=== PATIENT | female | born 1930 | race Caucasian/White ===

== ENCOUNTER 2018-05-24 11:16 | Inpatient (IN) | payer MEDICARE, OTHER ==
[~2018-05-24] VITALS: Ht 157.5 cm; Wt 59.9 kg
[2018-05-24] VITALS (14 sets, daily range): BP systolic 70–147; BP diastolic 40–97
[2018-05-24] MEDS ORDERED: IV NORMAL SALINE 1000ML BAG 1,000 ML IV ONE ×7 (11:45→17:15)
[2018-05-24] MEDS ORDERED: ETOMIDATE 20 MG/10 ML VIAL. IV ONE (11:59)
[2018-05-24] MEDS ORDERED: PANTOPRAZOLE IV PUSH 40 MG VIAL. IVP ONE (12:00)
[2018-05-24] MEDS ORDERED: ROCURONIUM 50 MG/5 ML VIAL. ONE (12:00)
[2018-05-24 12:05] LABS: BASO # 0.1 x10^3/uL (0.0-0.2); BASO % 0 % (0-3); EOS # 0.3 x10^3/uL (0.0-0.7); EOS % 2 % (0-3); HEMATOCRIT 29.6 % (36.0-47.0); HEMOGLOBIN 10.1 g/dL (12.0-15.5); LYMPH # 0.7 x10^3/uL (1.0-4.8); LYMPH % 6 % (24-48); MEAN CORPUSCULAR HEMOGLOBIN 34 pg (25-35); MEAN CORPUSCULAR HGB CONC 34 g/dL (31-37); MEAN CORPUSCULAR VOLUME 101 fL (79-100); MONO # 0.6 x10^3/uL (0.0-1.1); MONO % 4 % (0-9); NEUT # 11.4 x10^3uL (1.8-7.7); NEUT % 87 % (31-73); PLATELET COUNT 114 x10^3/uL (140-400); RED BLOOD COUNT 2.93 x10^6/uL (3.50-5.40); RED CELL DISTRIBUTION WIDTH 24.3 % (11.5-14.5); WHITE BLOOD COUNT 13.1 x10^3/uL (4.0-11.0)
[2018-05-24 12:07] LABS: BILIRUBIN,URINE LARGE (NEG); CLARITY,URINE CLOUDY; NITRITE,URINE POSITIVE (NEG); PROTEIN,URINE NEGATIVE (NEG-TRACE)
[2018-05-24 12:14] LABS: COLOR,URINE AMBER
[2018-05-24] MEDS ORDERED: dilTIAZem IV PUSH 25 MG/5 ML VIAL IVP ONE (12:15)
[2018-05-24] MEDS ORDERED: NOREPINEPHRIN 8MG/250ML PREMIX 250 ML IV ONE (12:15)
[2018-05-24] MEDS ORDERED: dilTIAZem INJ 125 MG in IV DEXTROSE 5% 100ML 100 ML IV PRN (12:15)
[2018-05-24 12:18] LABS: PROTHROMBIN TIME PATIENT 28.3 SEC (11.7-14.0)
[2018-05-24 12:18] LABS: AMORPHOUS SEDIMENT,UR PRESENT /HPF
--- NOTE | 2018-05-24 12:20 | RAD ---
Single view of the chest. 05/24/2018 11:57 AM Indication: RESPIRATORY DISTRESS, S/P INTUBATION Comparison: None available Findings: There is an endotracheal tube in place with tip approximately 2.5 cm above the tio. An enteric tube extends into the expected position of stomach. No pneumothorax is seen. No significant pleural effusion is identified. Lung volumes are low. Heart size is normal. Patchy infiltrates present throughout the bilateral lungs suggestive of edema or atypical infectious process. No acute osseous changes are identified. Limited visualization of the upper abdomen demonstrates 2 stents in the right upper quadrant. This could represent biliary or portal venous stents. The former is more common. 1. Endotracheal tube 2.5 cm above the tio. Enteric tube extending in the stomach 2. Patchy bilateral pulmonary infiltrates are present edema or atypical infectious process Electronically signed by: Los Pedro MD (05/24/2018 12:16 PM) [id number]
[2018-05-24 12:22] LABS: BASE EXCESS COOX -13 mmol/L (-3-3); HCO3 COOX 15 mmol/L (21-28); METHEMOGLOBIN 0.7 % (0.0-1.9); OXYHEMOGLOBIN 95.9 %; PO2 COOX 133 mmHg (65-108); SAT O2 COOX 97 % (92-99)
[2018-05-24 12:23] LABS: BACTERIA,URINE MODERATE /HPF (0-FEW)
[2018-05-24 12:27] LABS: CALCIUM 7.6 mg/dL (8.5-10.1); CREATININE 3.6 mg/dL (0.6-1.0); GFR 11.9; POTASSIUM 4.3 mmol/L (3.5-5.1)
--- NOTE | 2018-05-24 12:32 | PHYS DOC ---
Past Medical History Past Medical History: Other Additional Past Medical Histor: Liver cancer Past Medical History Unable to obtain due to patient's condition Additional Past Surgical Histo: unknown Past Surgical History Unable to obtain due to patient's condition Social History Unable to obtain due to patient's condition Adult General Chief Complaint Chief Complaint: ALTERED MENTAL STATUS HPI HPI 87-year-old female presents via EMS for altered mental status with 2 day history of vomiting coffee-ground emesis. Per EMS patient also hypotensive down to 80s over 50s,. heart rate elevated and appears to be in atrial fibrillation with RVR versus if atrial flutter, and with O2 sat down to 54%. Patient apparently has a history of liver cancer for which she is currently receiving some form of chemotherapy at home. History of present illness limited given patient's altered mental status. Review of Systems Review of Systems Constitutional: Reports weakness and altered mental status Respiratory: Reports shortness of breath and hypoxia GI: Reports coffee ground emesis and bloody stools. Neurologic: Reports altered mental status ROS limited given patient's current condition. Current Medications Current Medications Current Medications Medications (Trade) Dose Ordered Sig/Elsie Start Time Stop Time Status Last Admin Dose Admin Diltiazem HCl (Cardizem) 10 mg 1X ONCE 05/24/18 12:15 05/24/18 12:16 DC 05/24/18 12:37 10 MG Diltiazem HCl 125 mg/Dextrose 125 ml @ 5 mls/hr CONT PRN 05/24/18 12:15 05/24/18 12:32 5 MLS/HR Etomidate (Amidate) 20 mg STK-MED ONCE 05/24/18 11:59 05/24/18 12:00 DC Norepinephrine Bitartrate 250 ml @ 0 mls/hr 1X ONCE 05/24/18 12:15 05/24/18 12:16 DC 05/24/18 12:58 1.8 MLS/HR Pantoprazole Sodium (PROTONIX VIAL for IV PUSH) 80 mg 1X ONCE 05/24/18 12:00 05/24/18 12:14 DC 05/24/18 12:31 80 MG Pantoprazole Sodium 80 mg/ Sodium Chloride 100 ml @ 10 mls/hr Q10H 05/24/18 12:00 05/24/18 12:54 10 MLS/HR Piperacillin Sod/ Tazobactam Sod (Zosyn Per Pharmacy) 1 each PRN DAILY PRN 05/24/18 13:45 Piperacillin Sod/ Tazobactam Sod 2.25 gm/Sodium Chloride 50 ml @ 100 mls/hr 1X ONCE 05/24/18 13:45 05/24/18 14:14 DC 05/24/18 14:22 100 MLS/HR Piperacillin Sod/ Tazobactam Sod 4.5 gm/Sodium Chloride 100 ml @ 200 mls/hr 1X ONCE 05/24/18 13:45 05/24/18 14:14 UNV Rocuronium [place] (Zemuron) 50 mg STK-MED ONCE 05/24/18 12:00 05/24/18 12:02 DC Sodium Bicarbonate (Sodium Bicarb Adult 8.4% Syr) 50 meq STK-MED ONCE 05/24/18 13:35 05/24/18 13:36 DC Sodium Chloride 1,000 ml @ 1,000 mls/hr 1X ONCE 05/24/18 13:30 05/24/18 14:29 DC 05/24/18 13:05 1,000 MLS/HR Vancomycin HCl (Vanco Per Pharmacy) 1 each PRN DAILY PRN 05/24/18 13:45 Allergies Allergies Allergies Coded Allergies Type Severity Reaction Last Updated Verified No Known Drug Allergies 05/24/18 No Physical Exam Physical Exam Constitutional: Pale, elderly female who appears jaundice HENT: Normocephalic, atraumatic , oropharynx moist, dark vomitus noted to bilateral nares and side of mouth Eyes: PERRL, scleral icterus noted Neck: supple, no stridor, JVD noted bilaterally Cardiovascular: Tachycardic heart rate and CR > 2 sec to periphery Lungs & Thorax: Coarse breath sounds noted, agonal respirations Abdomen: Soft, mild distention noted Skin: Cool, dry, mild jaundice [] Extremities: No tenderness, 3+ pitting edema. [] Neurologic: Alert and oriented x 0, altered, open eyes to verbal Psychologic: Unable to assess Current Patient Data Vital Signs Vital Signs Date Time Temp Pulse Resp B/P (MAP) Pulse Ox O2 Delivery O2 Flow Rate FiO2 05/24/18 13:50 152 20 99 05/24/18 13:28 93.0 93.0 05/24/18 12:37 97/55 05/24/18 11:35 Ventilator Lab Values Laboratory Tests Test 05/24/18 11:50 05/24/18 11:55 05/24/18 12:15 05/24/18 12:25 White Blood Count 13.1 x10^3/uL (4.0-11.0) H Red Blood Count 2.93 x10^6/uL (3.50-5.40) L Hemoglobin 10.1 g/dL (12.0-15.5) L Hematocrit 29.6 % (36.0-47.0) L Mean Corpuscular Volume 101 fL (79-100) H Mean Corpuscular Hemoglobin 34 pg (25-35) Mean Corpuscular Hemoglobin Concent 34 g/dL (31-37) Red Cell Distribution Width 24.3 % (11.5-14.5) H Platelet Count 114 x10^3/uL (140-400) L Neutrophils (%) (Auto) 87 % (31-73) H Lymphocytes (%) (Auto) 6 % (24-48) L Monocytes (%) (Auto) 4 % (0-9) Eosinophils (%) (Auto) 2 % (0-3) Basophils (%) (Auto) 0 % (0-3) Neutrophils # (Auto) 11.4 x10^3uL (1.8-7.7) H Lymphocytes # (Auto) 0.7 x10^3/uL (1.0-4.8) L Monocytes # (Auto) 0.6 x10^3/uL (0.0-1.1) Eosinophils # (Auto) 0.3 x10^3/uL (0.0-0.7) Basophils # (Auto) 0.1 x10^3/uL (0.0-0.2) Segmented Neutrophils % 68 % (35-66) H Band Neutrophils % 21 % (0-9) H Lymphocytes % 6 % (24-48) L Monocytes % 4 % (0-10) Metamyelocytes % 1 % (0-0) H Toxic Granulation Slight Toxic Vacuolation Slight Platelet Estimate Decreased (ADEQUATE) Large Platelets Few Polychromasia Present Anisocytosis Mod Macrocytosis Mod Target Cells Few [place] Cells Few Prothrombin Time 28.3 SEC (11.7-14.0) H Prothrombin Time INR 2.7 (0.8-1.1) H PTT 35 SEC (24-38) Sodium Level 137 mmol/L (136-145) Potassium Level 4.3 mmol/L (3.5-5.1) Chloride Level 97 mmol/L (98-107) L Carbon Dioxide Level 15 mmol/L (21-32) L Anion Gap 25 (6-14) H Blood Urea Nitrogen 73 mg/dL (7-20) H Creatinine 3.6 mg/dL (0.6-1.0) H Estimated GFR (Cockcroft-Gault) 11.9 BUN/Creatinine Ratio 20 (6-20) Glucose Level 52 mg/dL (70-99) L Lactic Acid Level 14.3 mmol/L (0.4-2.0) *H Calcium Level 7.6 mg/dL (8.5-10.1) L Total Bilirubin 5.3 mg/dL (0.2-1.0) H Aspartate Amino Transferase (AST) 2387 U/L (15-37) H Alanine Aminotransferase (ALT) 456 U/L (14-59) H Alkaline Phosphatase 309 U/L (46-116) H Ammonia 27 mcmol/L (11-34) Total Protein 4.5 g/dL (6.4-8.2) L Albumin 1.1 g/dL (3.4-5.0) L Albumin/Globulin Ratio 0.3 (1.0-1.7) L Urine Collection Type Unknown Urine Color Ingris Urine Clarity Cloudy Urine pH 5.0 Urine Specific [place] 1.020 Urine Protein Negative mg/dL (NEG-TRACE) Urine Glucose (UA) Negative mg/dL (NEG) Urine Ketones (Stick) Trace mg/dL (NEG) Urine Blood Negative (NEG) Urine Nitrite Positive (NEG) Urine Bilirubin Large (NEG) Urine Urobilinogen Dipstick 1.0 mg/dL (0.2 mg/dL) Urine Leukocyte Esterase Small (NEG) Urine RBC 1-2 /HPF (0-2) Urine WBC 1-4 /HPF (0-4) Urine Amorphous Sediment Present /HPF Urine Bacteria Moderate /HPF (0-FEW) Urine Mucus Slight /LPF O2 Saturation 97 % (92-99) Arterial Blood pH 7.17 (7.35-7.45) *L Arterial Blood pCO2 at Patient Temp 41 mmHg (35-46) Arterial Blood pO2 at Patient Temp 133 mmHg (65-108) H Arterial Blood HCO3 15 mmol/L (21-28) L Arterial Blood Base Excess -13 mmol/L (-3-3) L Oxyhemoglobin 95.9 % Methemoglobin 0.7 % (0.0-1.9) Carbon Monoxide, Quantitative 0.3 % (0.0-1.9) FiO2 100.0 Fibrinogen 290 mg/dL (200-440) D-Dimer ([place]) 8.81 ug/mlFEU (0.00-0.50) H Test 05/24/18 13:00 Gastric Fluid Occult Blood Positive (NEG) Laboratory Tests 05/24/18 11:50 Laboratory Tests 05/24/18 11:50 EKG EKG @1200: Atrial fibrillation with RVR at 169bpm, low voltage QRS, NO ST elevation Radiology/Procedures Radiology/Procedures PROCEDURE: PORTABLE CHEST 1V Single view of the chest. 05/24/2018 11:57 AM Indication: RESPIRATORY DISTRESS, S/P INTUBATION Comparison: None available Findings: There is an endotracheal tube in place with tip approximately 2.5 cm above the tio. An enteric tube extends into the expected position of stomach. No pneumothorax is seen. No significant pleural effusion is identified. Lung volumes are low. Heart size is normal. Patchy infiltrates present throughout the bilateral lungs suggestive of edema or atypical infectious process. No acute osseous changes are identified. Limited visualization of the upper abdomen demonstrates 2 stents in the right upper quadrant. This could represent biliary or portal venous stents. The former is more common. 1. Endotracheal tube 2.5 cm above the tio. Enteric tube extending in the stomach 2. Patchy bilateral pulmonary infiltrates are present edema or atypical infectious process Electronically signed by: Los Pedro MD (05/24/2018 12:16 PM) [id number] PROCEDURE: CHEST AP ONLY EXAM: Chest, single view. HISTORY: Right internal jugular catheter placement. COMPARISON: 05/24/2018 FINDINGS: A frontal view of the chest is obtained. There is a right internal jugular catheter with the tip in the superior cavoatrial junction. There is an endotracheal tube within the distal trachea with the tip 1.7 cm proximal to the tio. There is a nasogastric tube looped within the stomach. There is stable to slight increased diffuse mixed interstitial and alveolar infiltrate. There is a suspected small pleural effusions. There is no pneumothorax. The heart is normal in size. IMPRESSION: 1. Stable to slight increased diffuse mixed interstitial and alveolar infiltrate. 2. Support lines and tubes described above. There has been suspected slight advancement of the endotracheal tube into the distal trachea and there has been interval placement of a right IJ catheter with the tip in the superior cavoatrial junction. Electronically signed by: Azalia Nails MD (05/24/2018 3:15 PM) [place] [id number] Course & Med Decision Making Course & Med Decision Making Pertinent Labs and Imaging studies reviewed. (See chart for details) Patient presents via EMS with report of altered mental status with low oxygenation who is hypotensive and tachycardic. Patient with history of liver cancer and 2 day history of coffee-ground emesis and bloody stools "per EMS". Patient's mentation decreased upon arrival and actively with coffee-ground emesis. Patient moved to side to prevent aspiration. RSI performed and airway protected. Patient with vomitus noted in and around trachea. Aspiration likely. CXR with ETT in good position. IVF hydration boluses given. EKG with afib RVR. Cardizem bolus/gtt initiated. Levophed also started due to hypotension. Labs obtained and posted to chart. Significant lactic acidosis noted. SIRS criteria met given tachycardia, bandemia, and hypothermia. UA with signs of infection. Empiric antibiotics give for septic shock. Coffee ground emesis positive for blood. Protonix bolus/gtt initiated. Renal failure noted. Hemoglobin 10. Type and screen obtained. RIJ SVCO2 central line placed with CXR confirmation. Patient requiring ICU admission for further evaluation and treatment. Discussed with Dr. Pacheco (hospitalist) who is in agreement with admission. Discusssed with Dr. Brown (pulmonology) who evaluated patient in the ED. Dr. Brown discussed with family regarding patient's poor prognosis. Family elects to continued on vent assistance but patient to otherwise be DNR. Dragon Disclaimer Dragon Disclaimer This electronic medical record was generated, in whole or in part, using a voice recognition dictation system. Central Line Central Line : Central Line Lumen: triple (SVCO2 line) Central Line Postion: internal jugular (R) Complications: none Central Line Post Position: sutured, good blood return, position confirmed w / CXR Progress Emergently performed, Hand hygiene, Max sterile precautions, Bedside Ultrasound guidance utilized, ChloraPrep preparation Intubation Intubation : Intubation Method: orotracheal (with 2 Nielson blade) Tube Size (cm): 7.0 (tuft) Breath Sounds after Intubation: equal Intubation Complications: apparent aspiration (coffee ground emesis, occurred prior to intubation) Post Intubation Xray: Yes Progress/Xray Impression: ETT in good position above tio, vascular congestion noted Progress Procedure done emergently, Hand hygiene utilized, 20mg of Etomidate, 50mg of Rocuronium provided for RSI Departure Departure Impression: Primary Impression: Septic shock Additional Impressions: Atrial fibrillation with RVR GI bleed History of liver cancer Respiratory failure UTI (urinary tract infection) Hyperbilirubinemia Elevated liver enzymes Disposition: ADMITTED INPATIENT Admitting Physician: Camilla Pacheco Condition: CRITICAL Referrals: UNKNOWN PCP NAME (PCP) Critical Care Time Critical care time was 60 minutes which includes time at bedside, spent in discussion of patient's care with specialists and/or family members, with interpretation of laboratory and/or radiological studies and is exclusive of procedures. Problem Qualifiers Additional Impressions: GI bleed GI bleed type/associated pathology: unspecified gastrointestinal hemorrhage type Qualified Codes: K92.2 - Gastrointestinal hemorrhage, unspecified Respiratory failure Chronicity: acute Respiratory failure complication: hypoxia Qualified Codes : J96.01 - Acute respiratory failure with hypoxia UTI (urinary tract infection) Urinary tract infection type: acute cystitis Hematuria presence: with hematuria Qualified Codes: N30.01 - Acute cystitis with hematuria EMIL VENTURA DO May 24, 2018 12:32
[2018-05-24 12:39] LABS: ALBUMIN 1.1 g/dL (3.4-5.0); ALBUMIN/GLOBULIN RATIO 0.3 (1.0-1.7); TOTAL BILIRUBIN 5.3 mg/dL (0.2-1.0); TOTAL PROTEIN 4.5 g/dL (6.4-8.2)
[2018-05-24] MEDS: PANTOPRAZOLE SODIUM IV DRIP 80 MG in IV NORMAL SALINE 100ML 100 ML IV SCH ×2 (12:54→20:03)
--- NOTE | 2018-05-24 12:59 | EKG ---
[facility] [address] [place] [address] Test Date: 2018-05-24 Test Time: 12:00:53 Pat Name: BETHANY MONGE Department: Room: Gender: F Enrollment Coordinator: : [id number] Requested By: EMIL VENTURA Order Number: [id number] Reading MD: Aden Jones MD Measurements Intervals Canon Rate: 169 P: IA: QRS: 52 QRSD: 88 T: 163 QT: 290 QTc: 492 Interpretive Statements ATRIAL FIBRILLATION WITH RVR Electronically Signed On 05-24-2018 14:09:36 CDT by Aden Jones MD
[2018-05-24 13:10] LABS: PCO2 COOX 41 mmHg (35-46)
[2018-05-24 13:14] LABS: GASTRIC OB PAT POSITIVE (NEG)
[2018-05-24 13:31] LABS: % BANDS 21 % (0-9); % LYMPHS 6 % (24-48); % METAS 1 % (0-0); % MONOS 4 % (0-10); % SEGS 68 % (35-66); PLT ESTIMATE DECREASED (ADEQUATE)
[2018-05-24 13:32] LABS: ANISOCYTOSIS MOD; POLYCHROMASIA PRESENT
[2018-05-24 13:33] LABS: BURR CELLS FEW; TARGET CELLS FEW
[2018-05-24 13:34] LABS: TOXIC GRANULATION SLIGHT; TOXIC VACUOLATION SLIGHT
[2018-05-24] MEDS ORDERED: SODIUM BICARB ADULT 8.4% 50 MEQ/50 ML DISP.SYRIN. ONE (13:35)
[2018-05-24] MEDS ORDERED: PIPERACILLIN/TAZOBACTAM 2.25 GM in IV NORMAL SALINE 50ML 50 ML IV ONE (13:45)
[2018-05-24] MEDS ORDERED: PIPERACILLIN/TAZOBACTAM 4.5 GM in IV NORMAL SALINE 100ML 100 ML IV ONE (13:45)
[2018-05-24] MEDS ORDERED: SODIUM BICARB ADULT 8.4% 50 MEQ/50 ML DISP.SYRIN. IV ONE ×2 (13:45→16:00)
[2018-05-24] MEDS ORDERED: VANCOMYCIN PER PHARMACY MC PRN (13:45)
[2018-05-24] MEDS ORDERED: PIP/TAZO PER PHARMACY MC PRN (13:45)
[2018-05-24] MEDS ORDERED: VANCOMYCIN 1.5 GM in IV NORMAL SALINE 500ML BAG 500 ML IV ONE (14:00)
[2018-05-24] MEDS ORDERED: ONDANSETRON PF 4 MG/2 ML VIAL. IV PRN (14:15)
[2018-05-24] MEDS ORDERED: fentaNYL PF VIAL 100 MCG/2 ML VIAL IV PRN (14:15)
--- NOTE | 2018-05-24 14:27 | CONS ---
DATE OF CONSULTATION: ATTENDING PHYSICIAN: Dr. Pacheco. REASON FOR CONSULTATION: Respiratory failure, shock. HISTORY OF PRESENT ILLNESS: The patient is an 87-year-old female who has no other chronic medical problem and never been sick according to family. She was diagnosed with liver cancer in January of this year and has been recently started on oral chemo at . She was brought into the hospital with altered mental status and vomiting of coffee-ground emesis. She was intubated for altered mental status and encephalopathy. The patient did have significant amount of coffee-ground emesis and likely aspirated. Her arterial blood gases initially revealed a pH of 7.17, pCO2 of 41 and a pO2 of 133 with a bicarbonate of 15 on 100% FiO2. She was in renal failure with a BUN of 73 and a creatinine 3.6 and lactic acid of 14.3. Albumin is severely low at 1.1. The patient also had some bacteria in the urine as well. INR was 2.7. I saw the patient in the Emergency Room. She was hypotensive and getting second liter of IV fluids. She was on 12 mcg of Levophed. She was also on Cardizem as she was tachycardic at 144 beats per minute and was sinus. I have reviewed the patient's chest x-ray, it shows bilateral patchy infiltrates. No significant pleural effusion seen. I have talked to the patient's family. The closest family was her [id number]. The patient's and has no kids. I discussed advanced directives, and they agree to continue current supportive care, but they agreed to make her DNR. PAST MEDICAL HISTORY: History of liver cancer, diagnosed recently in January and has been on oral chemo recently at . No significant history of tobacco use. PAST SURGICAL HISTORY: No recent surgery. ALLERGIES: None. MEDICATIONS: Reviewed that were given in the ER. The patient's home medications at this point are not available. REVIEW OF SYSTEMS: Unable to obtain as she is on the ventilator. SOCIAL HISTORY: No history of tobacco use. She lives at home. PHYSICAL EXAMINATION: GENERAL: She is intubated. She is not responsive. VITAL SIGNS: Her temperature core is 93. Blood pressure is in the 90s-100 on 12 mcg of Levophed. Pulse ox is 95%. HEENT: Sclerae icteric. NECK: Supple. LUNGS: With few anterior rhonchi. CARDIOVASCULAR: Tachycardia, sinus rhythm, sinus tachycardia. ABDOMEN: Soft. EXTREMITIES: With bilateral lower extremity pedal edema. LABORATORY DATA: Reviewed. Sodium 137, potassium 4.3, chloride 97, bicarb 15, BUN 73, creatinine 3.6, bilirubin 5.3, AST 2387, ALT 456. Albumin is 1.1. Ammonia is 27. ABGs discussed in my history of present illness. IMPRESSION: 1. Acute respiratory failure secondary to multifactorial etiologies including combination of acute encephalopathy secondary to liver failure, hemorrhagic and septic shock. 2. Marked lactic acidosis secondary to shock. Likely septic and hypovolemic/hemorrhagic. 3. Severe metabolic acidosis secondary to liver failure and lactic acidosis. 4. Acute renal failure. This is secondary to hypotension, shock and acute tubular necrosis. 5. Marked lactic acidosis. 6. Markedly elevated bilirubin and liver enzymes. Probably underlying liver cancer contributing to it, in addition, shock liver/ hepatic failure 7. Severe protein-calorie malnutrition with an albumin level of 1.1. 8. Normal ammonia level. 9. Coagulopathy. The patient is not on any anticoagulation, likely related to DIC.vs liver failure. RECOMMENDATIONS: 1. Continue with present assist control mode. I have increased the respiratory rate and follow ABGs and make necessary adjustment. 2. Give 2 amps of bicarbonate. 3. Broad spectrum antibiotics. 4. Follow hemoglobin closely and transfuse as needed. 5. Follow GI consultation. 6. Oncology consultation and recommendation. 7. Follow liver enzymes. 8. Follow renal function. 9. Improved nutritional status. 10. Follow chest x-rays to assess for any worsening infiltrates. Her urine is also positive and will obtain urine cultures as well. 11. Overall prognosis appears to be grim. I have discussed with the patient's family at the bedside, and they agreed to make her DNR. I have discussed with ER physician and RN. We will monitor the patient closely in the ICU and continue present aggressive care, but short of CPR or shock. Critical care time 40 minutes. THOMAS YOO MD DR: [email or web address]/[email or web address] JOB#: [id number] / [id number] ASIF
--- NOTE | 2018-05-24 14:42 | PDOC2 ---
GI CONSULT Reason For Consult: GI Bleed HPI: HPI: 87 y/o female seen in ER. History from Dr. Pacheco, Dr. Lovell, and ASSESSOR. Lives at home alone, family called EMS w/ reports of vomiting ("dark") and AMS for a couple days. Minimal responsiveness and hypoxia, given sedation and intubated in ER. Significant emesis (dark) prior to intubation - all over the floor, now ~200cc in OG canister. Family (currently not present) reported she was taken to in January for jaundice , diagnosed with liver cancer, started chemo ~3 weeks ago. Labs: WBC 13.1, Hgb 10.1, MCV 101, plt 114, INR 2.7, Cr 3.6, BUN 73, bili 5.3, AST 2307, ALT 456, Alk Phos 309, lactic acid 14.3. UA w/ nitrite. CXR noted 2 stents in RUQ. Started on PPI drip. PMH: PMH: per HPI ROS: Unable to obtain. Vitals: Vitals: Vital Signs Date Time Temp Pulse Resp B/P (MAP) Pulse Ox O2 Delivery O2 Flow Rate FiO2 05/24/18 13:28 93.0 93.0 05/24/18 12:37 152 97/55 05/24/18 11:22 20 95 Room Air Labs: Labs: Laboratory Tests Test 05/24/18 11:50 05/24/18 11:55 05/24/18 12:15 05/24/18 13:00 White Blood Count 13.1 x10^3/uL (4.0-11.0) Red Blood Count 2.93 x10^6/uL (3.50-5.40) Hemoglobin 10.1 g/dL (12.0-15.5) Hematocrit 29.6 % (36.0-47.0) Mean Corpuscular Volume 101 fL (79-100) Mean Corpuscular Hemoglobin 34 pg (25-35) Mean Corpuscular Hemoglobin Concent 34 g/dL (31-37) Red Cell Distribution Width 24.3 % (11.5-14.5) Platelet Count 114 x10^3/uL (140-400) Neutrophils (%) (Auto) 87 % (31-73) Lymphocytes (%) (Auto) 6 % (24-48) Monocytes (%) (Auto) 4 % (0-9) Eosinophils (%) (Auto) 2 % (0-3) Basophils (%) (Auto) 0 % (0-3) Neutrophils # (Auto) 11.4 x10^3uL (1.8-7.7) Lymphocytes # (Auto) 0.7 x10^3/uL (1.0-4.8) Monocytes # (Auto) 0.6 x10^3/uL (0.0-1.1) Eosinophils # (Auto) 0.3 x10^3/uL (0.0-0.7) Basophils # (Auto) 0.1 x10^3/uL (0.0-0.2) Segmented Neutrophils % 68 % (35-66) Band Neutrophils % 21 % (0-9) Lymphocytes % 6 % (24-48) Monocytes % 4 % (0-10) Metamyelocytes % 1 % (0-0) Toxic Granulation Slight Toxic Vacuolation Slight Platelet Estimate Decreased (ADEQUATE) Large Platelets Few Polychromasia Present Anisocytosis Mod Macrocytosis Mod Target Cells Few Jennifer Cells Few Prothrombin Time 28.3 SEC (11.7-14.0) Prothromb Time International Ratio 2.7 (0.8-1.1) Activated Partial Thromboplast Time 35 SEC (24-38) Sodium Level 137 mmol/L (136-145) Potassium Level 4.3 mmol/L (3.5-5.1) Chloride Level 97 mmol/L (98-107) Carbon Dioxide Level 15 mmol/L (21-32) Anion Gap 25 (6-14) Blood Urea Nitrogen 73 mg/dL (7-20) Creatinine 3.6 mg/dL (0.6-1.0) Estimated GFR (Cockcroft-Gault) 11.9 BUN/Creatinine Ratio 20 (6-20) Glucose Level 52 mg/dL (70-99) Lactic Acid Level 14.3 mmol/L (0.4-2.0) Calcium Level 7.6 mg/dL (8.5-10.1) Total Bilirubin 5.3 mg/dL (0.2-1.0) Aspartate Amino Transf (AST/SGOT) 2387 U/L (15-37) Alanine Aminotransferase (ALT/SGPT) 456 U/L (14-59) Alkaline Phosphatase 309 U/L (46-116) Ammonia 27 mcmol/L (11-34) Total Protein 4.5 g/dL (6.4-8.2) Albumin 1.1 g/dL (3.4-5.0) Albumin/Globulin Ratio 0.3 (1.0-1.7) Urine Collection Type Unknown Urine Color Ingris Urine Clarity Cloudy Urine pH 5.0 Urine Specific [place] 1.020 Urine Protein Negative mg/dL (NEG-TRACE) Urine Glucose (UA) Negative mg/dL (NEG) Urine Ketones (Stick) Trace mg/dL (NEG) Urine Blood Negative (NEG) Urine Nitrite Positive (NEG) Urine Bilirubin Large (NEG) Urine Urobilinogen Dipstick 1.0 mg/dL (0.2 mg/dL) Urine Leukocyte Esterase Small (NEG) Urine RBC 1-2 /HPF (0-2) Urine WBC 1-4 /HPF (0-4) Urine Amorphous Sediment Present /HPF Urine Bacteria Moderate /HPF (0-FEW) Urine Mucus Slight /LPF O2 Saturation 97 % (92-99) Arterial Blood pH 7.17 (7.35-7.45) Arterial Blood pCO2 at Patient Temp 41 mmHg (35-46) Arterial Blood pO2 at Patient Temp 133 mmHg (65-108) Arterial Blood HCO3 15 mmol/L (21-28) Arterial Blood Base Excess -13 mmol/L (-3-3) Oxyhemoglobin 95.9 % Methemoglobin 0.7 % (0.0-1.9) Carbon Monoxide, Quantitative 0.3 % (0.0-1.9) FiO2 100.0 Gastric Fluid Occult Blood Positive (NEG) Allergies: Coded Allergies: No Known Drug Allergies (Unverified , 05/24/18) Medications: Current Medications Medications (Trade) Dose Ordered Sig/Elsie Route PRN Reason Start Time Stop Time Status Last Admin Dose Admin Sodium Chloride 1,000 ml @ 1,000 mls/hr 1X ONCE IV 05/24/18 11:45 05/24/18 12:44 DC 05/24/18 11:45 Pantoprazole Sodium (PROTONIX VIAL for IV PUSH) 80 mg 1X ONCE IVP 05/24/18 12:00 05/24/18 12:14 DC 05/24/18 12:31 Pantoprazole Sodium 80 mg/ Sodium Chloride 100 ml @ 10 mls/hr Q10H IV 05/24/18 12:00 05/24/18 12:54 Diltiazem HCl (Cardizem) 10 mg 1X ONCE IVP 05/24/18 12:15 05/24/18 12:16 DC 05/24/18 12:37 Diltiazem HCl 125 mg/Dextrose 125 ml @ 5 mls/hr CONT PRN IV SEE I/O RECORD 05/24/18 12:15 05/24/18 12:32 Norepinephrine Bitartrate 250 ml @ 0 mls/hr 1X ONCE IV 05/24/18 12:15 05/24/18 12:16 DC 05/24/18 12:58 Sodium Chloride 1,000 ml @ 1,000 mls/hr 1X ONCE IV 05/24/18 13:30 05/24/18 14:29 05/24/18 13:05 Sodium Bicarbonate (Sodium Bicarb Adult 8.4% Syr) 100 meq 1X ONCE IV 05/24/18 13:45 05/24/18 13:46 DC 05/24/18 13:31 Piperacillin Sod/ Tazobactam Sod 2.25 gm/Sodium Chloride 50 ml @ 100 mls/hr 1X ONCE IV 05/24/18 13:45 05/24/18 14:14 DC 05/24/18 14:22 Imaging: Imaging: CXR Findings: There is an endotracheal tube in place with tip approximately 2.5 cm above the tio. An enteric tube extends into the expected position of stomach. No pneumothorax is seen. No significant pleural effusion is identified. Lung volumes are low. Heart size is normal. Patchy infiltrates present throughout the bilateral lungs suggestive of edema or atypical infectious process. No acute osseous changes are identified. Limited visualization of the upper abdomen demonstrates 2 stents in the right upper quadrant. This could represent biliary or portal venous stents. The former is more common. 1. Endotracheal tube 2.5 cm above the tio. Enteric tube extending in the stomach. 2. Patchy bilateral pulmonary infiltrates are present edema or atypical infectious process. PE: GEN: intubated HEENT: atraumatic LUNGS: vent HEART: irregular ABD: quiet, soft, half-dollar sized EXTREMITY: no edema SKIN: cool, pale NEURO/PSYCH: sedated prior to intubation - has not required additional A/P: A/P: Dark emesis, AMS Resp failure, lactic acidosis, BASILIO, anemia, coagulopathy, elevated LFTs H/o liver cancer - ?cholangiocarcinoma - apparently follows w/ [facility] and is on chemo, two stents in RUQ -- GI-gee, continue PPI and check US/doppler re: stent patency, r/o PV thrombosis. HAYDE RABAGO May 24, 2018 14:42
[2018-05-24] MEDS ORDERED: DEXTROSE 50% 25 GM / 50ML DISP.SYRIN. IV ONE ×2 (14:50→15:00)
[2018-05-24] MEDS ORDERED: IV NORMAL SALINE 1000ML BAG 1,000 ML IV SCH ×2 (15:15→16:00)
--- NOTE | 2018-05-24 15:19 | RAD ---
EXAM: Chest, single view. HISTORY: Right internal jugular catheter placement. COMPARISON: 05/24/2018 FINDINGS: A frontal view of the chest is obtained. There is a right internal jugular catheter with the tip in the superior cavoatrial junction. There is an endotracheal tube within the distal trachea with the tip 1.7 cm proximal to the tio. There is a nasogastric tube looped within the stomach. There is stable to slight increased diffuse mixed interstitial and alveolar infiltrate. There is a suspected small pleural effusions. There is no pneumothorax. The heart is normal in size. IMPRESSION: 1. Stable to slight increased diffuse mixed interstitial and alveolar infiltrate. 2. Support lines and tubes described above. There has been suspected slight advancement of the endotracheal tube into the distal trachea and there has been interval placement of a right IJ catheter with the tip in the superior cavoatrial junction. Electronically signed by: Azalia Nails MD (05/24/2018 3:15 PM) [id number]
[2018-05-24 15:28] LABS: D-DIMER 8.81 ug/mlFEU (0.00-0.50)
[2018-05-24 15:46] LABS: BASE EXCESS ABG -16 mmol/L (-3-3); HCO3 ABG 14 mmol/L (21-28); PO2 ABG 65 mmHg (65-108); SAT O2 ABG 76 % (92-99)
--- NOTE | 2018-05-24 15:46 | PDOC1 ---
History and Physical Date of Admission Date of Admission DATE: 05/24/18 TIME: 15:42 Source Source: Chart review, Patient History of Present Illness History of Present Illness Ms. Vazquez was brought to the ER, EMS called by family, acute new coffee ground emesis. repeated in ER, large volume brackish emesis. Then resp distress with coughing, dyspnea, hypoxia, the ER doctor intubated to protect the airway. Then tachycardia, with hypotension, AFIB with RVR, on vent, not sedated but poorly responsive, does not respond to verbal or painful, pupils reactive admit to ICU stat, PULM consulted before I arrived in ER Past Medical History Cardiovascular: No pertinent hx GI: Other Heme/Onc: Cancer Current Problem List Problem List Problems Medical Problems: (1) Atrial fibrillation with RVR Status: Acute (2) GI bleed Status: Acute (3) History of liver cancer Status: Acute (4) Respiratory failure Status: Acute (5) Septic shock Status: Acute Current Medications Current Medications Current Medications Sodium Chloride 1,000 ml @ 1,000 mls/hr 1X ONCE IV Last administered on at 11:45; Start 05/24/18 at 11:45; Stop 05/24/18 at 12:44; Status DC Pantoprazole Sodium (PROTONIX VIAL for IV PUSH) 80 mg 1X ONCE IVP Last administered on 05/24/18at 12:31; Start 05/24/18 at 12:00; Stop 05/24/18 at 12:14 ; Status DC Pantoprazole Sodium 80 mg/ Sodium Chloride 100 ml @ 10 mls/hr Q10H IV Last administered on 05/24/18at 12:54; Start 05/24/18 at 12:00 Etomidate (Amidate) 20 mg STK-MED ONCE IV ; Start 05/24/18 at 11:59; Stop at 12:00; Status DC Rocuronium [place] (Zemuron) 50 mg STK-MED ONCE .ROUTE ; Start 05/24/18 at 12:00 ; Stop 05/24/18 at 12:02; Status DC Diltiazem HCl (Cardizem) 10 mg 1X ONCE IVP Last administered on 05/24/18at 12: 37; Start 05/24/18 at 12:15; Stop 05/24/18 at 12:16; Status DC Diltiazem HCl 125 mg/Dextrose 125 ml @ 5 mls/hr CONT PRN IV SEE I/O RECORD Last administered on 05/24/18at 12:32; Start 05/24/18 at 12:15 Norepinephrine Bitartrate 250 ml @ 0 mls/hr 1X ONCE IV Last administered on at 12:58; Start 05/24/18 at 12:15; Stop 05/24/18 at 12:16; Status DC Sodium Chloride 1,000 ml @ 1,000 mls/hr 1X ONCE IV Last administered on at 13:05; Start 05/24/18 at 13:30; Stop 05/24/18 at 14:29; Status DC Sodium Bicarbonate (Sodium Bicarb Adult 8.4% Syr) 100 meq 1X ONCE IV Last administered on 05/24/18at 13:31; Start 05/24/18 at 13:45; Stop 05/24/18 at 13:46 ; Status DC Sodium Bicarbonate (Sodium Bicarb Adult 8.4% Syr) 50 meq STK-MED ONCE .ROUTE ; Start 05/24/18 at 13:35; Stop 05/24/18 at 13:36; Status DC Piperacillin Sod/ Tazobactam Sod 4.5 gm/Sodium Chloride 100 ml @ 200 mls/hr 1X ONCE IV ; Start 05/24/18 at 13:45; Stop 05/24/18 at 14:14; Status UNV Vancomycin HCl 1.5 gm/Sodium Chloride 500 ml @ 250 mls/hr 1X ONCE IV ; Start 05/24/18 at 14:00; Stop 05/24/18 at 15:59 Piperacillin Sod/ Tazobactam Sod 2.25 gm/Sodium Chloride 50 ml @ 100 mls/hr 1X ONCE IV Last administered on 05/24/18at 14:22; Start 05/24/18 at 13:45; Stop 05/24/18 at 14:14; Status DC Piperacillin Sod/ Tazobactam Sod (Zosyn Per Pharmacy) 1 each PRN DAILY PRN MC SEE COMMENTS; Start 05/24/18 at 13:45 Vancomycin HCl (Vanco Per Pharmacy) 1 each PRN DAILY PRN MC SEE COMMENTS; Start 05/24/18 at 13:45 Ondansetron HCl (Zofran) 4 mg PRN Q8HRS PRN IV NAUSEA/VOMITING; Start 05/24/18 at 14:15; Stop 05/25/18 at 14:14 Fentanyl Citrate (Fentanyl 2ml Vial) 50 mcg PRN Q2HR PRN IV PAIN; Start at 14:15; Stop 05/25/18 at 14:14 Piperacillin Sod/ Tazobactam Sod 2.25 gm/Sodium Chloride 50 ml @ 100 mls/hr Q6HRS IV ; Start 05/25/18 at 00:00 Dextrose (Dextrose 50%-Water Syringe) 25 gm 1X ONCE IV ; Start 05/24/18 at 15: 00; Stop 05/24/18 at 15:01; Status DC Dextrose (Dextrose 50%-Water Syringe) 25 gm STK-MED ONCE IV ; Start 05/24/18 at 14:50; Stop 05/24/18 at 14:51; Status DC Sodium Chloride 1,000 ml @ 100 mls/hr Q10H IV ; Start 05/24/18 at 15:15; Stop 05/25/18 at 01:14 Sodium Chloride 1,000 ml @ 1,000 mls/hr 1X ONCE IV ; Start 05/24/18 at 14:00; Stop 05/24/18 at 15:38; Status DC Allergies Allergies: Coded Allergies: No Known Drug Allergies (Unverified , 05/24/18) ROS Review of System unable, intubated, acute change today Physical Exam General: severe distress, Other (out) HEENT: PERRLA, Mucous membr. moist/pink, Other Lungs: Normal air movement, Other Heart: no murmurs, other Abdomen: Soft, Other Rectal Exam: not examined, other Extremities: No cyanosis, No edema, Other Skin: No rashes, Other Neuro: Other Psych/Mental Status: Other Vitals Vitals Vital Signs Date Time Temp Pulse Resp B/P (MAP) Pulse Ox O2 Delivery O2 Flow Rate FiO2 05/24/18 13:35 140 20 99 05/24/18 13:28 93.0 93.0 05/24/18 12:37 97/55 05/24/18 11:22 Room Air Labs Labs Laboratory Tests Test 05/24/18 11:50 05/24/18 11:55 05/24/18 12:15 05/24/18 12:25 White Blood Count 13.1 x10^3/uL (4.0-11.0) Red Blood Count 2.93 x10^6/uL (3.50-5.40) Hemoglobin 10.1 g/dL (12.0-15.5) Hematocrit 29.6 % (36.0-47.0) Mean Corpuscular Volume 101 fL (79-100) Mean Corpuscular Hemoglobin 34 pg (25-35) Mean Corpuscular Hemoglobin Concent 34 g/dL (31-37) Red Cell Distribution Width 24.3 % (11.5-14.5) Platelet Count 114 x10^3/uL (140-400) Neutrophils (%) (Auto) 87 % (31-73) Lymphocytes (%) (Auto) 6 % (24-48) Monocytes (%) (Auto) 4 % (0-9) Eosinophils (%) (Auto) 2 % (0-3) Basophils (%) (Auto) 0 % (0-3) Neutrophils # (Auto) 11.4 x10^3uL (1.8-7.7) Lymphocytes # (Auto) 0.7 x10^3/uL (1.0-4.8) Monocytes # (Auto) 0.6 x10^3/uL (0.0-1.1) Eosinophils # (Auto) 0.3 x10^3/uL (0.0-0.7) Basophils # (Auto) 0.1 x10^3/uL (0.0-0.2) Segmented Neutrophils % 68 % (35-66) Band Neutrophils % 21 % (0-9) Lymphocytes % 6 % (24-48) Monocytes % 4 % (0-10) Metamyelocytes % 1 % (0-0) Toxic Granulation Slight Toxic Vacuolation Slight Platelet Estimate Decreased (ADEQUATE) Large Platelets Few Polychromasia Present Anisocytosis Mod Macrocytosis Mod Target Cells Few Papillion Cells Few Prothrombin Time 28.3 SEC (11.7-14.0) Prothromb Time International Ratio 2.7 (0.8-1.1) Activated Partial Thromboplast Time 35 SEC (24-38) Sodium Level 137 mmol/L (136-145) Potassium Level 4.3 mmol/L (3.5-5.1) Chloride Level 97 mmol/L (98-107) Carbon Dioxide Level 15 mmol/L (21-32) Anion Gap 25 (6-14) Blood Urea Nitrogen 73 mg/dL (7-20) Creatinine 3.6 mg/dL (0.6-1.0) Estimated GFR (Cockcroft-Gault) 11.9 BUN/Creatinine Ratio 20 (6-20) Glucose Level 52 mg/dL (70-99) Lactic Acid Level 14.3 mmol/L (0.4-2.0) Calcium Level 7.6 mg/dL (8.5-10.1) Total Bilirubin 5.3 mg/dL (0.2-1.0) Aspartate Amino Transf (AST/SGOT) 2387 U/L (15-37) Alanine Aminotransferase (ALT/SGPT) 456 U/L (14-59) Alkaline Phosphatase 309 U/L (46-116) Ammonia 27 mcmol/L (11-34) Total Protein 4.5 g/dL (6.4-8.2) Albumin 1.1 g/dL (3.4-5.0) Albumin/Globulin Ratio 0.3 (1.0-1.7) Urine Collection Type Unknown Urine Color Ingris Urine Clarity Cloudy Urine pH 5.0 Urine Specific [place] 1.020 Urine Protein Negative mg/dL (NEG-TRACE) Urine Glucose (UA) Negative mg/dL (NEG) Urine Ketones (Stick) Trace mg/dL (NEG) Urine Blood Negative (NEG) Urine Nitrite Positive (NEG) Urine Bilirubin Large (NEG) Urine Urobilinogen Dipstick 1.0 mg/dL (0.2 mg/dL) Urine Leukocyte Esterase Small (NEG) Urine RBC 1-2 /HPF (0-2) Urine WBC 1-4 /HPF (0-4) Urine Amorphous Sediment Present /HPF Urine Bacteria Moderate /HPF (0-FEW) Urine Mucus Slight /LPF O2 Saturation 97 % (92-99) Arterial Blood pH 7.17 (7.35-7.45) Arterial Blood pCO2 at Patient Temp 41 mmHg (35-46) Arterial Blood pO2 at Patient Temp 133 mmHg (65-108) Arterial Blood HCO3 15 mmol/L (21-28) Arterial Blood Base Excess -13 mmol/L (-3-3) Oxyhemoglobin 95.9 % Methemoglobin 0.7 % (0.0-1.9) Carbon Monoxide, Quantitative 0.3 % (0.0-1.9) FiO2 100.0 Fibrinogen 290 mg/dL (200-440) D-Dimer (Kasey) 8.81 ug/mlFEU (0.00-0.50) Test 05/24/18 13:00 Gastric Fluid Occult Blood Positive (NEG) Laboratory Tests Test 05/24/18 11:50 05/24/18 11:55 05/24/18 12:15 05/24/18 12:25 White Blood Count 13.1 x10^3/uL (4.0-11.0) Red Blood Count 2.93 x10^6/uL (3.50-5.40) Hemoglobin 10.1 g/dL (12.0-15.5) Hematocrit 29.6 % (36.0-47.0) Mean Corpuscular Volume 101 fL (79-100) Mean Corpuscular Hemoglobin 34 pg (25-35) Mean Corpuscular Hemoglobin Concent 34 g/dL (31-37) Red Cell Distribution Width 24.3 % (11.5-14.5) Platelet Count 114 x10^3/uL (140-400) Neutrophils (%) (Auto) 87 % (31-73) Lymphocytes (%) (Auto) 6 % (24-48) Monocytes (%) (Auto) 4 % (0-9) Eosinophils (%) (Auto) 2 % (0-3) Basophils (%) (Auto) 0 % (0-3) Neutrophils # (Auto) 11.4 x10^3uL (1.8-7.7) Lymphocytes # (Auto) 0.7 x10^3/uL (1.0-4.8) Monocytes # (Auto) 0.6 x10^3/uL (0.0-1.1) Eosinophils # (Auto) 0.3 x10^3/uL (0.0-0.7) Basophils # (Auto) 0.1 x10^3/uL (0.0-0.2) Segmented Neutrophils % 68 % (35-66) Band Neutrophils % 21 % (0-9) Lymphocytes % 6 % (24-48) Monocytes % 4 % (0-10) Metamyelocytes % 1 % (0-0) Toxic Granulation Slight Toxic Vacuolation Slight Platelet Estimate Decreased (ADEQUATE) Large Platelets Few Polychromasia Present Anisocytosis Mod Macrocytosis Mod Target Cells Few Papillion Cells Few Prothrombin Time 28.3 SEC (11.7-14.0) Prothromb Time International Ratio 2.7 (0.8-1.1) Activated Partial Thromboplast Time 35 SEC (24-38) Sodium Level 137 mmol/L (136-145) Potassium Level 4.3 mmol/L (3.5-5.1) Chloride Level 97 mmol/L (98-107) Carbon Dioxide Level 15 mmol/L (21-32) Anion Gap 25 (6-14) Blood Urea Nitrogen 73 mg/dL (7-20) Creatinine 3.6 mg/dL (0.6-1.0) Estimated GFR (Cockcroft-Gault) 11.9 BUN/Creatinine Ratio 20 (6-20) Glucose Level 52 mg/dL (70-99) Lactic Acid Level 14.3 mmol/L (0.4-2.0) Calcium Level 7.6 mg/dL (8.5-10.1) Total Bilirubin 5.3 mg/dL (0.2-1.0) Aspartate Amino Transf (AST/SGOT) 2387 U/L (15-37) Alanine Aminotransferase (ALT/SGPT) 456 U/L (14-59) Alkaline Phosphatase 309 U/L (46-116) Ammonia 27 mcmol/L (11-34) Total Protein 4.5 g/dL (6.4-8.2) Albumin 1.1 g/dL (3.4-5.0) Albumin/Globulin Ratio 0.3 (1.0-1.7) Urine Collection Type Unknown Urine Color Ingris Urine Clarity Cloudy Urine pH 5.0 Urine Specific [place] 1.020 Urine Protein Negative mg/dL (NEG-TRACE) Urine Glucose (UA) Negative mg/dL (NEG) Urine Ketones (Stick) Trace mg/dL (NEG) Urine Blood Negative (NEG) Urine Nitrite Positive (NEG) Urine Bilirubin Large (NEG) Urine Urobilinogen Dipstick 1.0 mg/dL (0.2 mg/dL) Urine Leukocyte Esterase Small (NEG) Urine RBC 1-2 /HPF (0-2) Urine WBC 1-4 /HPF (0-4) Urine Amorphous Sediment Present /HPF Urine Bacteria Moderate /HPF (0-FEW) Urine Mucus Slight /LPF O2 Saturation 97 % (92-99) Arterial Blood pH 7.17 (7.35-7.45) Arterial Blood pCO2 at Patient Temp 41 mmHg (35-46) Arterial Blood pO2 at Patient Temp 133 mmHg (65-108) Arterial Blood HCO3 15 mmol/L (21-28) Arterial Blood Base Excess -13 mmol/L (-3-3) Oxyhemoglobin 95.9 % Methemoglobin 0.7 % (0.0-1.9) Carbon Monoxide, Quantitative 0.3 % (0.0-1.9) FiO2 100.0 Fibrinogen 290 mg/dL (200-440) D-Dimer (Kasey) 8.81 ug/mlFEU (0.00-0.50) Test 05/24/18 13:00 Gastric Fluid Occult Blood Positive (NEG) VTE Prophylaxis Ordered VTE Prophylaxis Devices: Yes VTE Pharmacological Prophylaxi: Contraindicated Assessment/Plan Assessment/Plan Hematemesis, upper gi bleed aspiration pneumonia acute hypoxic respiratory failure sepsis with septic shock afib with RVR, acute diastolic CHF Hx of liver cancer, coagulopathy severe malnutrition, UTI admit to ICU, > 35 min THIERNO CENTENO MD May 24, 2018 15:46
[2018-05-24 15:50] LABS: BASE EXCESS ABG -15 mmol/L (-3-3); HCO3 ABG 14 mmol/L (21-28); PCO2 ABG 49 mmHg (35-46)
[2018-05-24 15:55] LABS: FIO2 ABG 100; PCO2 ABG 52 mmHg (35-46)
[2018-05-24 15:56] LABS: PO2 ABG 47 mmHg (65-108); SAT O2 ABG 56 % (92-99)
[2018-05-24] MEDS ORDERED: PHENYLEPHRINE INJ 20 MG in IV NORMAL SALINE 250ML 250 ML IV ONE (16:00)
[2018-05-24] MEDS ORDERED: PHYTONADIONE (VIT K1) IV 10 MG in IV NORMAL SALINE 50ML 50 ML IV ONE (16:00)
[2018-05-24] MEDS ORDERED: SODIUM BICARBONATE VIAL 150 MEQ in IV DEXTROSE 5% 1,000 ML IV PRN (16:00)
[2018-05-24] MEDS ORDERED: DEXTROSE 50% 25 GM / 50ML DISP.SYRIN. IV PRN (16:00)
[2018-05-24] MEDS ORDERED: VASOPRESSIN 40 UNIT in IV DEXTROSE 5% 100ML 100 ML IV PRN (16:00)
[2018-05-24 17:00] LABS: HEMOGLOBIN 8.4 g/dL (12.0-15.5); RED BLOOD COUNT 2.54 x10^6/uL (3.50-5.40); RED CELL DISTRIBUTION WIDTH 24.8 % (11.5-14.5); WHITE BLOOD COUNT 5.3 x10^3/uL (4.0-11.0)
[2018-05-24] MEDS ORDERED: INFLUENZA VAX SCREEN BY RX. MC ONE (17:00)
[2018-05-24] MEDS ORDERED: INSULIN LISPRO 300 UNITS/3 ML INSULN.PEN. SQ SCH (17:00)
[2018-05-24] MEDS ORDERED: DIGOXIN IV 500 MCG/2 ML AMPUL. IV ONE (17:15)
[2018-05-24] MEDS: NOREPINEPHRIN 8MG/250ML PREMIX 250 ML IV PRN ×2 (18:49→23:09)
--- NOTE | 2018-05-24 21:39 | RAD ---
Ultrasound of the right upper quadrant of the abdomen 05/24/2018 CLINICAL HISTORY: Cholangiocarcinoma. Abdominal distention. TECHNIQUE: A real-time ultrasound examination of the right upper quadrant of the abdomen was performed. Multiple images were obtained. FINDINGS: The gallbladder is distended with echogenic material which could represent sludge and/or tumor. The common bile duct measures 6 mm in diameter which is within normal limits. The liver is normal in size measuring 13.4 cm in length. Several hypoechoic masses are seen scattered throughout both lobes of the liver. The largest measures 3.1 cm in greatest diameter. These are consistent with metastasis. No intrahepatic biliary ductal dilatation is seen. Stents are seen within the common hepatic duct. The visualized portions of the pancreas and right kidney are within normal limits. A moderate amount of ascites is seen throughout the abdomen. IMPRESSION: 1. Hepatic metastasis. 2. The gallbladder is distended with echogenic sludge and/or tumor. 3. No intrahepatic biliary ductal dilatation is seen. 4. Moderate amount of ascites. Electronically signed by: Doroteo Spencer MD (05/24/2018 9:36 PM) [facility]
[2018-05-24 22:13] LABS: BASO % 0 % (0-3); EOS # 0.1 x10^3/uL (0.0-0.7); EOS % 4 % (0-3); HEMATOCRIT 23.1 % (36.0-47.0); HEMOGLOBIN 7.2 g/dL (12.0-15.5); LYMPH # 0.5 x10^3/uL (1.0-4.8); LYMPH % 15 % (24-48); MEAN CORPUSCULAR HEMOGLOBIN 34 pg (25-35); MEAN CORPUSCULAR HGB CONC 31 g/dL (31-37); MEAN CORPUSCULAR VOLUME 109 fL (79-100); MONO % 1 % (0-9); NEUT # 2.8 x10^3uL (1.8-7.7); NEUT % 80 % (31-73); PLATELET COUNT 53 x10^3/uL (140-400); RED BLOOD COUNT 2.12 x10^6/uL (3.50-5.40); RED CELL DISTRIBUTION WIDTH 25.1 % (11.5-14.5); WHITE BLOOD COUNT 3.5 x10^3/uL (4.0-11.0)
[2018-05-24 22:26] LABS: CREATININE 2.8 mg/dL (0.6-1.0); GFR 15.9; MAGNESIUM 2.1 mg/dL (1.8-2.4); PHOSPHORUS 7.8 mg/dL (2.6-4.7); POTASSIUM 5.1 mmol/L (3.5-5.1)
[2018-05-24] MEDS ORDERED: PHENYLEPHRINE INJ 20 MG in IV NORMAL SALINE 250ML 250 ML IV PRN ×2 (22:30→23:00)
[2018-05-24] MEDS ORDERED: CALCIUM GLUCONATE 1,000 MG in IV DEXTROSE 5% 100ML 100 ML IV ONE (23:00)
[2018-05-25] VITALS: BP_SYST 0
[2018-05-25] MEDS ORDERED: PIPERACILLIN/TAZOBACTAM 2.25 GM in IV NORMAL SALINE 50ML 50 ML IV SCH ×2
--- NOTE | 2018-05-25 09:41 | PDOC ---
GENERAL General: Pt before being seen VITAL SIGNS Vital Signs: Vital Signs Date Time Temp Pulse Resp B/P (MAP) Pulse Ox O2 Delivery O2 Flow Rate FiO2 05/25/18 00:00 0 0/ 05/24/18 23:38 Ventilator 05/24/18 23:30 91.4 26 60 91.4 I & O I & O Intake and Output 05/25/18 07:00 Intake Total 6340 ml Output Total 10 ml Balance 6330 ml Intake IV Total 6340 ml Output Urine Total 10 ml ALLERGIES Allergies: Allergies Coded Allergies Type Severity Reaction Last Updated Verified No Known Drug Allergies 05/24/18 No MEDS Medications: Current Medications Medications (Trade) Dose Ordered Sig/Elsie Start Time Stop Time Status Last Admin Dose Admin Calcium Gluconate 1000 mg/Dextrose 110 ml @ 220 mls/hr 1X ONCE 05/24/18 23:00 05/24/18 23:29 DC 05/24/18 22:59 220 MLS/HR Dextrose (Dextrose 50%-Water Syringe) 12.5 gm PRN Q15MIN PRN 05/24/18 16:00 05/25/18 09:33 DC Digoxin (Lanoxin) 500 mcg 1X ONCE 05/24/18 17:15 05/24/18 17:17 DC 05/24/18 17:44 500 MCG Diltiazem HCl (Cardizem) 10 mg 1X ONCE 05/24/18 12:15 05/24/18 12:16 DC 05/24/18 12:37 10 MG Diltiazem HCl 125 mg/Dextrose 125 ml @ 5 mls/hr CONT PRN 05/24/18 12:15 05/25/18 09:33 DC 05/24/18 12:32 5 MLS/HR Dopamine HCl/ Dextrose 250 ml @ 4.495 mls/ hr CONT PRN 05/24/18 22:15 05/25/18 09:33 DC 05/24/18 22:15 22.474 MLS/HR Etomidate (Amidate) 20 mg STK-MED ONCE 05/24/18 11:59 05/24/18 12:00 DC Fentanyl Citrate (Fentanyl 2ml Vial) 50 mcg PRN Q2HR PRN 05/24/18 14:15 05/25/18 09:33 DC Info (FLU VACCINE SCREEN per RX) 1 each 1X ONCE 05/24/18 17:00 05/24/18 17:01 Cancel Insulin Human Lispro (HumaLOG) 0-5 UNITS TIDWMEALS 05/24/18 17:00 05/25/18 09:33 DC Norepinephrine Bitartrate 250 ml @ 1.875 mls/ hr CONT PRN 05/24/18 18:30 05/25/18 09:33 DC 05/24/18 23:09 56.25 MLS/HR Ondansetron HCl (Zofran) 4 mg PRN Q8HRS PRN 05/24/18 14:15 05/25/18 09:33 DC Pantoprazole Sodium (PROTONIX VIAL for IV PUSH) 80 mg 1X ONCE 05/24/18 12:00 05/24/18 12:14 DC 05/24/18 12:31 80 MG Pantoprazole Sodium 80 mg/ Sodium Chloride 100 ml @ 10 mls/hr Q10H 05/24/18 12:00 05/25/18 09:33 DC 05/24/18 20:03 10 MLS/HR Phenylephrine HCl 20 mg/Sodium Chloride 252 ml @ 22.68 mls/ hr STAT PRN 05/24/18 23:00 UNV Phytonadione 10 mg/Sodium Chloride 51 ml @ 102 mls/hr 1X ONCE 05/24/18 16:00 05/24/18 16:29 DC 05/24/18 16:03 102 MLS/HR Piperacillin Sod/ Tazobactam Sod (Zosyn Per Pharmacy) 1 each PRN DAILY PRN 05/24/18 13:45 05/25/18 09:33 DC Piperacillin Sod/ Tazobactam Sod 2.25 gm/Sodium Chloride 50 ml @ 100 mls/hr Q6HRS 05/25/18 00:00 05/25/18 09:33 DC Piperacillin Sod/ Tazobactam Sod 4.5 gm/Sodium Chloride 100 ml @ 200 mls/hr 1X ONCE 05/24/18 13:45 05/24/18 14:14 UNV Rocuronium [place] (Zemuron) 50 mg STK-MED ONCE 05/24/18 12:00 05/24/18 12:02 DC Sodium Bicarbonate 150 meq/Dextrose 1,150 ml @ 100 mls/hr CONT PRN 05/24/18 16:00 10/2/18 09:33 DC Sodium Bicarbonate (Sodium Bicarb Adult 8.4% Syr) 100 meq 1X ONCE 05/24/18 16:00 05/24/18 16:02 DC 05/24/18 16:04 100 MEQ Sodium Chloride 1,000 ml @ 999 mls/hr 1X ONCE 05/24/18 17:15 05/24/18 18:15 DC 05/24/18 17:45 999 MLS/HR Vancomycin HCl (Vanco Per Pharmacy) 1 each PRN DAILY PRN 05/24/18 13:45 05/25/18 09:33 DC 05/24/18 17:33 1 EACH Vancomycin HCl (Vancomycin Random Level) 1 each 1X ONCE 05/26/18 05:00 05/26/18 05:00 DC Vancomycin HCl 1.5 gm/Sodium Chloride 500 ml @ 250 mls/hr 1X ONCE 05/24/18 14:00 05/24/18 15:59 DC 05/24/18 15:47 250 MLS/HR Vasopressin 40 unit/Dextrose 102 ml @ 6 mls/hr CONT PRN 05/24/18 16:00 05/25/18 09:33 DC 05/24/18 16:24 6 MLS/HR LAB Lab: Laboratory Tests Test 05/24/18 11:50 05/24/18 11:55 05/24/18 12:15 05/24/18 12:25 White Blood Count 13.1 x10^3/uL (4.0-11.0) Red Blood Count 2.93 x10^6/uL (3.50-5.40) Hemoglobin 10.1 g/dL (12.0-15.5) Hematocrit 29.6 % (36.0-47.0) Mean Corpuscular Volume 101 fL (79-100) Mean Corpuscular Hemoglobin 34 pg (25-35) Mean Corpuscular Hemoglobin Concent 34 g/dL (31-37) Red Cell Distribution Width 24.3 % (11.5-14.5) Platelet Count 114 x10^3/uL (140-400) Neutrophils (%) (Auto) 87 % (31-73) Lymphocytes (%) (Auto) 6 % (24-48) Monocytes (%) (Auto) 4 % (0-9) Eosinophils (%) (Auto) 2 % (0-3) Basophils (%) (Auto) 0 % (0-3) Neutrophils # (Auto) 11.4 x10^3uL (1.8-7.7) Lymphocytes # (Auto) 0.7 x10^3/uL (1.0-4.8) Monocytes # (Auto) 0.6 x10^3/uL (0.0-1.1) Eosinophils # (Auto) 0.3 x10^3/uL (0.0-0.7) Basophils # (Auto) 0.1 x10^3/uL (0.0-0.2) Segmented Neutrophils % 68 % (35-66) Band Neutrophils % 21 % (0-9) Lymphocytes % 6 % (24-48) Monocytes % 4 % (0-10) Metamyelocytes % 1 % (0-0) Toxic Granulation Slight Toxic Vacuolation Slight Platelet Estimate Decreased (ADEQUATE) Large Platelets Few Polychromasia Present Anisocytosis Mod Macrocytosis Mod Target Cells Few [place] Cells Few Prothrombin Time 28.3 SEC (11.7-14.0) Prothromb Time International Ratio 2.7 (0.8-1.1) Activated Partial Thromboplast Time 35 SEC (24-38) Sodium Level 137 mmol/L (136-145) Potassium Level 4.3 mmol/L (3.5-5.1) Chloride Level 97 mmol/L (98-107) Carbon Dioxide Level 15 mmol/L (21-32) Anion Gap 25 (6-14) Blood Urea Nitrogen 73 mg/dL (7-20) Creatinine 3.6 mg/dL (0.6-1.0) Estimated GFR (Cockcroft-Gault) 11.9 BUN/Creatinine Ratio 20 (6-20) Glucose Level 52 mg/dL (70-99) Lactic Acid Level 14.3 mmol/L (0.4-2.0) Calcium Level 7.6 mg/dL (8.5-10.1) Total Bilirubin 5.3 mg/dL (0.2-1.0) Aspartate Amino Transf (AST/SGOT) 2387 U/L (15-37) Alanine Aminotransferase (ALT/SGPT) 456 U/L (14-59) Alkaline Phosphatase 309 U/L (46-116) Ammonia 27 mcmol/L (11-34) Total Protein 4.5 g/dL (6.4-8.2) Albumin 1.1 g/dL (3.4-5.0) Albumin/Globulin Ratio 0.3 (1.0-1.7) Urine Collection Type Unknown Urine Color Ingris Urine Clarity Cloudy Urine pH 5.0 Urine Specific Bad[place] 1.020 Urine Protein Negative mg/dL (NEG-TRACE) Urine Glucose (UA) Negative mg/dL (NEG) Urine Ketones (Stick) Trace mg/dL (NEG) Urine Blood Negative (NEG) Urine Nitrite Positive (NEG) Urine Bilirubin Large (NEG) Urine Urobilinogen Dipstick 1.0 mg/dL (0.2 mg/dL) Urine Leukocyte Esterase Small (NEG) Urine RBC 1-2 /HPF (0-2) Urine WBC 1-4 /HPF (0-4) Urine Amorphous Sediment Present /HPF Urine Bacteria Moderate /HPF (0-FEW) Urine Mucus Slight /LPF O2 Saturation 97 % (92-99) Arterial Blood pH 7.17 (7.35-7.45) Arterial Blood pCO2 at Patient Temp 41 mmHg (35-46) Arterial Blood pO2 at Patient Temp 133 mmHg (65-108) Arterial Blood HCO3 15 mmol/L (21-28) Arterial Blood Base Excess -13 mmol/L (-3-3) Oxyhemoglobin 95.9 % Methemoglobin 0.7 % (0.0-1.9) Carbon Monoxide, Quantitative 0.3 % (0.0-1.9) FiO2 100.0 Fibrinogen 290 mg/dL (200-440) D-Dimer (Kasey) 8.81 ug/mlFEU (0.00-0.50) Test 05/24/18 13:00 05/24/18 15:30 05/24/18 15:35 05/24/18 15:46 Gastric Fluid Occult Blood Positive (NEG) O2 Saturation 76 % (92-99) 56 % (92-99) Arterial Blood pH 7.04 (7.35-7.45) 7.08 (7.35-7.45) Arterial Blood pCO2 at Patient Temp 52 mmHg (35-46) 49 mmHg (35-46) Arterial Blood pO2 at Patient Temp 65 mmHg (65-108) 47 mmHg (65-108) Arterial Blood HCO3 14 mmol/L (21-28) 14 mmol/L (21-28) Arterial Blood Base Excess -16 mmol/L (-3-3) -15 mmol/L (-3-3) FiO2 100 Nasal Screen MRSA (PCR) Negative (Negative) Test 05/24/18 16:04 05/24/18 16:50 05/24/18 22:00 Glucose (Fingerstick) 79 mg/dL (70-99) White Blood Count 5.3 x10^3/uL (4.0-11.0) 3.5 x10^3/uL (4.0-11.0) Red Blood Count 2.54 x10^6/uL (3.50-5.40) 2.12 x10^6/uL (3.50-5.40) Hemoglobin 8.4 g/dL (12.0-15.5) 7.2 g/dL (12.0-15.5) Hematocrit 26.0 % (36.0-47.0) 23.1 % (36.0-47.0) Mean Corpuscular Volume 103 fL (79-100) 109 fL (79-100) Mean Corpuscular Hemoglobin 33 pg (25-35) 34 pg (25-35) Mean Corpuscular Hemoglobin Concent 32 g/dL (31-37) 31 g/dL (31-37) Red Cell Distribution Width 24.8 % (11.5-14.5) 25.1 % (11.5-14.5) Platelet Count 80 x10^3/uL (140-400) 53 x10^3/uL (140-400) Lactic Acid Level 14.9 mmol/L (0.4-2.0) Troponin I Quantitative 0.071 ng/mL (0.000-0.055) 0.084 ng/mL (0.000-0.055) Neutrophils (%) (Auto) 80 % (31-73) Lymphocytes (%) (Auto) 15 % (24-48) Monocytes (%) (Auto) 1 % (0-9) Eosinophils (%) (Auto) 4 % (0-3) Basophils (%) (Auto) 0 % (0-3) Neutrophils # (Auto) 2.8 x10^3uL (1.8-7.7) Lymphocytes # (Auto) 0.5 x10^3/uL (1.0-4.8) Monocytes # (Auto) 0.0 x10^3/uL (0.0-1.1) Eosinophils # (Auto) 0.1 x10^3/uL (0.0-0.7) Basophils # (Auto) 0.0 x10^3/uL (0.0-0.2) Sodium Level 146 mmol/L (136-145) Potassium Level 5.1 mmol/L (3.5-5.1) Chloride Level 110 mmol/L (98-107) Carbon Dioxide Level 14 mmol/L (21-32) Anion Gap 22 (6-14) Blood Urea Nitrogen 56 mg/dL (7-20) Creatinine 2.8 mg/dL (0.6-1.0) Estimated GFR (Cockcroft-Gault) 15.9 Glucose Level 52 mg/dL (70-99) Calcium Level 6.0 mg/dL (8.5-10.1) Phosphorus Level 7.8 mg/dL (2.6-4.7) Magnesium Level 2.1 mg/dL (1.8-2.4) IRMA RODRIGUEZ MD May 25, 2018 09:41
--- NOTE | 2018-05-25 12:53 | PDOC3 ---
Discharge Summary [facility] Date of Admission: May 24, 2018 Discharge Date: May 25, 2018 Admitting Diagnosis Hematemesis, upper gi bleed aspiration pneumonia acute hypoxic respiratory failure REQUIRED intubation sepsis with septic shock afib with RVR, acute diastolic CHF Hx of liver cancer, coagulopathy severe malnutrition, UTI lactate acidosis Final Diagnosis CONSULTS pulm gi Brief Hospital Course Ms. Vazquez is a 87 old F ,came to ER for coffee ground emesis, with sob, required intubation. She has liver ca with mets. pancytopenia, quirino, less responsive before intubation , severe lactate acidosis. pt at midnight as per nurse. CONDITION AT DISCHARGE: / Miscellaneous Medications Info (No Known Medications Prior To Admisstion), 1 EACH , (Reported) FRANK CALLOWAY MD May 25, 2018 12:53
[2018-05-26] MEDS ORDERED: VANCOMYCIN RANDOM LEVEL. MC ONE (05:00)
== END 2018-05-25 | disposition expired | DRG 871 ==
LOC: EDSEX 11:16 → ER 11:16 → 1 WEST ICU 13:55
PROVIDERS: ADMIT Internal Medicine; ATTEND Internal Medicine
PROC: 5A1935Z Respiratory Ventilation, Less than 24 Consecutive Hours (ICD-10-PCS; principal; 2018-05-24)
PROC: 0BH17EZ Insertion of Endotracheal Airway into Trachea, Via Natural or Artificial Opening (ICD-10-PCS; 2018-05-24)
DX: A41.9 Sepsis, unspecified organism (principal); E43 Unspecified severe protein-calorie malnutrition; I50.31 Acute diastolic (congestive) heart failure; J69.0 Pneumonitis due to inhalation of food and vomit; J96.01 Acute respiratory failure with hypoxia; K72.00 Acute and subacute hepatic failure without coma; N17.0 Acute kidney failure with tubular necrosis; R65.21 Severe sepsis with septic shock; C22.9 Malignant neoplasm of liver, not specified as primary or secondary; D61.818 Other pancytopenia; N39.0 Urinary tract infection, site not specified; K92.2 Gastrointestinal hemorrhage, unspecified; G93.40 Encephalopathy, unspecified; D68.9 Coagulation defect, unspecified; E86.1 Hypovolemia; I48.91 Unspecified atrial fibrillation; Z66 Do not resuscitate; Z85.05 Personal history of malignant neoplasm of liver; Z92.21 Personal history of antineoplastic chemotherapy
CPT/HCPCS: 31500; 36415; 36556; 36600; 51702; 71045; 76705; 80048; 80053; 81001; 82140; 82271; 82805; 82962; 83605; 83735; 84100; 84484; 85007; 85025; 85027; 85379; 85384; 85610; 85730; 86850; 86900; 86901; 87040; 87086; 87641; 93005; 96361; 96365; 96366; 96368; 96375; 99291; C9113; J0610; J1160; J1265; J1815; J2543; J3370; J3430; J3490; J7030; J7040; J7050